=== PATIENT | female | born 2000 | race Two or more races ===

== ENCOUNTER 2018-08-27 15:24 | Emergency (ER) | payer MEDICAID ==
[2018-08-27] MEDS ORDERED: KETOROLAC TROMETHAMINE INJ/PF 30 MG/1 ML SDV IV ONE (16:03)
[2018-08-27] MEDS ORDERED: DEXAMETHASONE SOD PHOS INJ 10 MG/1 ML VIAL IV ONE (16:03)
[2018-08-27] MEDS ORDERED: NORMAL SALINE 1000 ML 1,000 ML IV ONE (16:05)
--- NOTE | 2018-08-27 16:05 | ER Document Report ---
ED Medical Screen (RME) - General Chief Complaint: Allergic Reaction Stated Complaint: POSSIBLE ALLERGIC REACTION Time Seen by Provider: 08/27/18 16:01 Mode of Arrival: Ambulatory Information source: Patient Notes: 18-year-old female presents to ED for complaint of sore throat fever and diffic ulty swallowing with a temperature of 101 and very large exudative tonsils. She states she is not eating or drinking anything today. She states she is having trouble swallowing her own saliva. Patient is speaking with a muffled voice. She has been ordered Decadron, Toradol, saline lock, strep and mono tests, and will be seen by another provider. I have greeted and performed a rapid initial assessment of this patient. A comprehensive ED assessment and evaluation of the patient, analysis of test results and completion of medical decision making process will be conducted by an additional ED providers. TRAVEL OUTSIDE OF THE [place] IN LAST 30 DAYS: No - Related Data Allergies/Adverse Reactions: No Known Allergies Allergy (Unverified 08/27/18 15:27) Past Medical History Renal/ Medical History: Denies: Hx Peritoneal Dialysis Past Surgical History: Reports: Hx Oral Surgery Physical Exam - Vital signs Vitals: Temp Pulse Resp BP Pulse Ox 101.4 F H 127 H 20 140/89 H 97 08/27/18 15:39 08/27/18 15:39 08/27/18 15:39 08/27/18 15:39 08/27/18 15:39 Course - Vital Signs Vital signs: Temp Pulse Resp BP Pulse Ox 101.4 F H 127 H 20 140/89 H 97 08/27/18 15:39 08/27/18 15:39 08/27/18 15:39 08/27/18 15:39 08/27/18 15:39 - Laboratory Result Diagrams: 08/27/18 16:16 Laboratory results interpreted by me: 08/27/18 16:16 WBC 16.2 H Seg Neutrophils % 82.3 H Lymphocytes % 7.7 L Absolute Neutrophils 13.3 H Absolute Monocytes 1.6 H
[2018-08-27 16:51] LABS: ABSOLUTE LYMPHOCYTES (AUTO) 1.2 10^3/uL (0.5-4.7); ABSOLUTE MONOCYTES (AUTO) 1.6 10^3/uL (0.1-1.4); ABSOLUTE NEUT (AUTO) 13.3 10^3/uL (1.7-8.2); BASOPHILS % (AUTO) 0.3 % (0-2); HEMATOCRIT 37.2 % (36.0-47.0); HEMOGLOBIN 12.3 g/dL (12.0-15.5); LYMPHOCYTES % (AUTO) 7.7 % (13-45); MEAN CORPUSCULAR HEMOGLOBIN 28.3 pg (27.0-33.4); MEAN CORPUSCULAR VOLUME 86 fl (80-97); MONOCYTES % (AUTO) 9.7 % (3-13); PLATELET COUNT 243 10^3/uL (150-450); RED BLOOD COUNT 4.33 10^6/uL (3.72-5.28); RED CELL DISTRIBUTION WIDTH 13.9 % (11.5-14.0); SEGMENTED NEUTROPHILS % (AUTO) 82.3 % (42-78); TOTAL CELLS COUNTED % (AUTO) 100 %; WHITE BLOOD COUNT 16.2 10^3/uL (4.0-10.5)
[2018-08-27] MEDS ORDERED: LIDOCAINE 1% INJ-PF (10 MG/ML) 30 ML SDV NEB ONE (19:14)
[2018-08-27] MEDS ORDERED: CEFTRIAXONE INJ 1000 MG VIAL IM ONE (19:14)
--- NOTE | 2018-08-27 19:22 | ER Document Report ---
ED General - General Chief Complaint: Allergic Reaction Stated Complaint: POSSIBLE ALLERGIC REACTION Time Seen by Provider: 08/27/18 16:01 Mode of Arrival: Ambulatory Information source: Patient TRAVEL OUTSIDE OF THE [place] IN LAST 30 DAYS: No - HPI Patient complains to provider of: Fever, sore throat, odynophagia Onset: Other - 3 days Onset/Duration: Sudden Quality of pain: Sharp, Stabbing Severity: Severe Pain Level: 4 Associated symptoms: Chills, Fever, Sore throat Exacerbated by: Denies Relieved by: Denies Similar symptoms previously: No Recently seen / treated by doctor: No Notes: 18-year-old -[place] female coming in today with fever, swollen throat, pain when she swallows. Symptoms present for the past 3 days. Patient has no chronic medical problems. Hurts to swallow but she is able to manage her own secretions. - Related Data Allergies/Adverse Reactions: No Known Allergies Allergy (Unverified 08/27/18 15:27) Past Medical History - General Information source: Patient - Social History Smoking Status: Never Smoker Family History: Reviewed & Not Pertinent Patient has suicidal ideation: No Patient has homicidal ideation: No Renal/ Medical History: Denies: Hx Peritoneal Dialysis Past Surgical History: Reports: Hx Oral Surgery Review of Systems - Review of Systems Notes: Constitutional: Positive for fevers and chills EENT: No eye redness. No eye pain. No ear pain. Positive for sore throat. Cardiovascular: No chest pain. No palpitations. Respiratory: No cough. No shortness of breath. No respiratory distress. Gastrointestinal: No abdominal pain. No nausea, vomiting, or diarrhea. Genitourinary: Atraumatic. No lesions. No pain. No discharge. Musculoskeletal: Atraumatic. No swelling. No deformities. Skin: No rash or lesions. Lymphatic: No swollen lymph nodes. Neurologic: No headache. No syncope. Psychiatric: No suicidal or homicidal ideation. Physical Exam - Vital signs Vitals: Temp Pulse Resp BP Pulse Ox 101.4 F H 127 H 20 140/89 H 97 08/27/18 15:39 08/27/18 15:39 08/27/18 15:39 08/27/18 15:39 08/27/18 15:39 - Notes Notes: General: Well-developed, well-nourished. In no acute distress. Non-toxic appearing. Cardiac: Well-perfused. Regular rate and rhythm. No murmurs, rubs, or gallops. Pulmonary: No respiratory distress. No cyanosis. Bilateral lung fiels are clear to auscultation. Abdominal: Non-distended. Non-rigid. Bowels sounds are present in all four quadrants. No guarding or rebound. HEENT: Head is atraumatic. Conjunctivae not reddened. No tearing. PERRL. EOMI. Orbits atraumatic. No periorbital swelling or erythema. Oropharynx is swollen, erythematous, and tonsils are enlarged with copious white exudates. Uvula is midline. No trismus. No drooling. No submandibular or sublingual swelling. No dysphonia dyspnea or dysphagia Neck: Supple. No adenopathy. No meningismus. Dermatologic: Warm with good turgor. No rash. Atraumatic. Chest: Atraumatic. No chest wall tenderness to palpation. Musculoskeletal: Moves all extremities well. No range of motion deficits. no muscular or joint tenderness. No paraspinal muscle tenderness. no midline spinal tenderness or step-off. Genitourinary: Examination deferred Neurologic: No gross neurologic deficits. Psychiatric: Normal mood. Course - Re-evaluation Re-evalutation: 08/27/18 19:18 Labs are all negative. Will continue patient on prednisone we will also give a shot of Rocephin and keep her on Keflex 4 times a day for 10 days. She will return to the ED if her swelling is getting worse. - Vital Signs Vital signs: Temp Pulse Resp BP Pulse Ox 101.4 F H 127 H 20 140/89 H 97 08/27/18 15:39 08/27/18 15:39 08/27/18 15:39 08/27/18 15:39 08/27/18 15:39 - Laboratory Result Diagrams: 08/27/18 16:16 Laboratory results interpreted by me: 08/27/18 16:16 WBC 16.2 H Seg Neutrophils % 82.3 H Lymphocytes % 7.7 L Absolute Neutrophils 13.3 H Absolute Monocytes 1.6 H Discharge - Discharge Clinical Impression: Acute tonsillitis Qualifiers: Pharyngitis/tonsillitis etiology: unspecified etiology Qualified Code(s): J03.90 - Acute tonsillitis, unspecified Condition: Good Disposition: HOME, SELF-CARE Instructions: Cephalexin ([facility]), Corticosteroid Medication ([facility]), Tonsillitis ([facility]) Additional Instructions: Return to the emergency department at any time if you feel like the swelling is getting worse such that you are not able to swallow your own saliva and/or you are having difficulty getting a good breath. Prescriptions: Cephalexin Monohydrate [Keflex 500 mg Capsule] 500 mg PO Q6H 5 Days #40 capsule Prednisone 50 mg PO DAILY #5 tablet Referrals: [facility] [Provider Group] - Follow up as needed
[2018-08-27 19:45] VITALS: BP 112/72
== END 2018-08-27 19:45 | disposition home or self-care (01) ==
LOC: ER 15:24
DX: J03.90 Acute tonsillitis, unspecified (principal); T78.40XA Allergy, unspecified, initial encounter; R50.9 Fever, unspecified; R13.10 Dysphagia, unspecified
CPT/HCPCS: 94640; 99283; 96372; 96361; 96374; 96375; 36415; 87070; 87880; 84703; 85025; 86308; J3490; J1885; J0696; J7030; J1100